=== PATIENT | male | born 1980 | race Caucasian/White ===

== ENCOUNTER 2020-09-09 06:14 | Outpatient (REF) | payer BC, SELFPAY ==
[2020-09-09 12:09] LABS: Alanine Aminotransferase 49 U/L (0-40); Albumin Level 4.1 g/dL (3.5-5.0); Alkaline Phosphatase 45 U/L (39-117); Anion Gap 14 (12-20); Aspartate Amino Transferase 38 U/L (5-37); Bilirubin Total 0.6 mg/dL (0.0-1.0); Blood Urea Nitrogen 18 mg/dL (9-16); Carbon Dioxide 23 mmol/L (22-29); Chloride 113 mmol/L (96-108); Cholesterol 189 mg/dL; Estimated Glomerular Filt Rate > 60; Glucose Fasting 129 mg/dL (60-99); HDL Cholesterol 31 mg/dL; LDL Cholesterol Calculated 120 mg/dl; Potassium 4.4 mmol/L (3.3-5.1); Sodium 146 mmol/L (135-145); Total Protein 7.1 g/dL (6.5-8.0); Triglycerides 190 mg/dL
[2020-09-09 12:19] LABS: TSH reflex Free T4 1.81 uIU/mL (0.32-4.0)
[2020-09-09 12:22] LABS: Microalbum/Creatinine Ratio Ur 7.8 ug/mg cr
== END 2020-09-09 06:15 | disposition home or self-care (01) ==
LOC: HO.HMGCLDS 06:14
PROVIDERS: Visit Provider Nurse Practitioner Family
DX: E11.9 Type 2 diabetes mellitus without complications (principal)
CPT/HCPCS: 36415; 80053; 80061; 82043; 84443

== ENCOUNTER 2022-10-21 06:45 | Outpatient (REF) | payer BC, SELFPAY ==
--- NOTE | ~2022-10-21 | XR_ITS ---
EXAMINATION: XR SHOULDER, RIGHT CLINICAL INFORMATION: Pain COMPARISON: Previous x-ray January 2019 TECHNIQUE: AP external rotation, Grashey, scapular Y, and axillary views of the right shoulder. FINDINGS: Bone alignment is normal. No acute fracture or dislocation. Question old Hill-Sachs deformity of the greater tuberosity similar to previous exam. Mild arthritis at the glenohumeral and acromioclavicular joints with small osteophytes. Normal soft tissues. XR/XR shoulder RT min 2V IMPRESSION: Mild arthritis at the glenohumeral and acromioclavicular joints. Question old Hill-Sachs deformity similar to previous exam.
[2022-10-21 10:37] LABS: MANUAL DIFF FLAG NO
[2022-10-21 10:41] LABS: Basophils Percent Auto 0.6 % (0-2); Eosinophils Absolute Auto 0.1 X10*3/uL (0.0-0.4); Eosinophils Percent Auto 1.1 % (0-4); Hematocrit 44.6 % (42.0-52.0); Hemoglobin 15.2 g/dl (14.0-18.0); Imm Gran Abs Auto 0.01 X10*3/uL (0.00-0.03); Imm Gran Pct Auto 0.2 % (0.0-0.4); Lymphocytes Absolute Auto 2.8 X10*3/uL (1.2-4.9); Lymphocytes Percent Auto 53.1 % (20-40); Mean Corpuscular HGB Conc 34.1 g/dl (31.0-36.0); Mean Corpuscular Hemoglobin 30.3 pg (27.0-33.0); Mean Platelet Volume 10.2 fL (9.4-12.4); Monocytes Absolute Auto 0.3 X10*3/uL (0.1-1.2); Neutrophils Absolute Auto 2.1 x10*3/uL (2.0-8.3); Platelet Count 141 X10*3/uL (160-400); Red Blood Count 5.01 X10*6/uL (4.60-5.80); White Blood Count 5.3 X10*3/uL (4.8-10.8)
[2022-10-21 10:53] LABS: Estimated Average Glucose 209 mg/dL; Hemoglobin A1c % 8.9 %
[2022-10-21 11:00] LABS: Alanine Aminotransferase 30 U/L (0-40); Alkaline Phosphatase 55 U/L (39-117); Anion Gap 12 (12-20); Aspartate Amino Transferase 24 U/L (5-37); Bilirubin Total 0.4 mg/dL (0.0-1.0); Blood Urea Nitrogen 17 mg/dL (9-16); Calcium 9.2 mg/dL (8.4-10.2); Carbon Dioxide 23 mmol/L (22-29); Chloride 109 mmol/L (96-108); Cholesterol 208 mg/dL; Estimated Glomerular Filt Rate > 60; Glucose Fasting 187 mg/dL (60-99); Glucose Random 186 mg/dL (60-115); HDL Cholesterol 33 mg/dL; LDL Cholesterol Calculated 105 mg/dl; Potassium 4.9 mmol/L (3.3-5.1); Sodium 139 mmol/L (135-145); Total Protein 7.1 g/dL (6.5-8.0); Triglycerides 352 mg/dL
[2022-10-21 11:14] LABS: Appearance Urine Clear; Color Urine Yellow; Glucose Urine UA >=1000 mg/dL (Negative); Leukocyte Esterase Urine Negative (Negative); Nitrite Urine Negative (Negative); PH 5.5 (5.0-9.0); Specific Gravity - Urine >= 1.030 (1.005-1.025); UMIC TRIGGER UACC YES; Urine Blood Negative (Negative); Urine Ketones Negative (Negative); Urine Protein Trace mg/dL (Neg-Trace)
[2022-10-21 11:17] LABS: TSH reflex Free T4 2.36 uIU/mL (0.32-4.0)
[2022-10-21 11:18] LABS: Bacteria Urine None Seen (None Seen); RBC Urine 0-2 /HPF (0-2); Squamous Epithelial Cell Urine 0-2 /HPF (0-2); WBC Urine 0-5 /HPF (0-5)
[2022-10-21 11:30] LABS: Creatinine Urine 136.01 mg/dL; Microalbum/Creatinine Ratio Ur 16.9 ug/mg cr
== END 2022-10-21 06:46 | disposition home or self-care (01) ==
LOC: HO.HMGCLDS 06:45
PROVIDERS: PCP Nurse Practitioner Family; Visit Provider Nurse Practitioner Family
DX: M25.511 Pain in right shoulder (principal); E11.9 Type 2 diabetes mellitus without complications
CPT/HCPCS: 36415; 73030; 80053; 80061; 81001; 82043; 83036; 84443; 85025

== ENCOUNTER → 2022-11-21 14:42 | Outpatient (BNVA) | payer BC, SELFPAY | PROVIDERS: Visit Provider Orthopaedic Surgery ==

== ENCOUNTER 2023-02-21 15:13 | Outpatient (AMB) | payer BC, SELFPAY ==
--- NOTE | 2023-02-21 15:19 | MHC.PC.OV ---
Vital Signs 02/21/23 15:23 Height 5 ft 11 in Weight 304 lb BMI 42.4 BP 150/100 H Blood Pressure Location Rt brachial Position Sitting Pulse 80 Pulse Source Pulse Oximeter Pulse Oximetry (%) 97 Oxygen Delivery Method Room Air Intake Visit Reasons: Annual PE Allergies bee pollen [BEE STINGS] Allergy (Unknown, Unverified 02/21/23 15:23) SWELLING bees Allergy (Unknown, Unverified 02/21/23 15:23) anaphylaxis Medication List - Last Reconciled 02/21/23 by KAMARI Castañeda- empagliflozin (Jardiance) 10 mg PO DAILY 30 days losartan 25 mg PO DAILY rosuvastatin 5 mg PO BEDTIME 30 days Tobacco use date assessed: 10/17/22 HPI Annual PE HPI Details Pt is here for a PE. Will order labs. Pt is a diabetic, on an ARB and a statin. A1C in office today is 8.5. Microalbumin is up to date. Denies polyuria, polydipsia, and neuropathy. Pt denies any signs and symptoms of hypoglycemia and does know how to correct it. Pt reports eating unhealthy recently. He plans to start working on his diet in the near future. Educated pt on the importance of tight glucose control. Pt has not been taking his medications after he ran out, will refill. Pt's blood pressure is elevated today, though he has not been taking his losartan. Will refer for eye exam. [facility] Medical History Hypertension Social History Housing: House Alcohol intake: current Alcohol intake frequency: a few times a month Patient Tobacco Use Status: Former Tobacco user Quit Date: 8 years ago e-Cigarette/Vaping Use: Never Used Second Hand Smoke Exposure: Yes service: No Current occupational status: employed Current occupation: [employer] Current occupational exposures/hazards: Yes Cognitive needs: No Hearing needs: No Vision needs: No Questionnaire Thrive Questionnaire Date Thrive assessed: 10/17/22 I am a: Patient What is your living situation today?: I have a steady place to live Within the past 12 months, did the food you bought not last and you didn't have the money to get more?: Never true Within the past 12 months, did you worry whether your food would run out before you got money to buy more?: Never true AUDIT C Alcohol Use Questionnaire (AUDIT-C) 1. How often do you have a drink containing alcohol?: Monthly or less 2. How many drinks containing alcohol do you have on a typical day when you are drinking?: 1 or 2 3. How often do you have six or more drinks on one occasion?: Less than monthly Total Score: 2 Score Reviewed/Action Taken: Yes AVTAR-7 AMB Questionnaire AVTAR-7 Date AVTAR - 7 assessed: 10/17/22 Feeling nervous, anxious, or on edge: 0 = Not at all Not being able to stop or control worryin = Not at all Worrying too much about different things: 0 = Not at all Trouble relaxin = Not at all Being so restless that it is hard to sit still: 0 = Not at all Becoming easily annoyed or irritable: 0 = Not at all Feeling afraid as if something awful might happen: 0 = Not at all Total AVTAR-7 score (0-4 normal; 5-9 mild; 10-14 moderate; 15-21 severe): 0 Source: Developed by Drs. Gautam Jane, Humera Reyes, Dhruv Quinones and colleagues, with an educational claudy from [employer]. AVTAR-7 Assessment Billing AVTAR-7 Assessment Tool: AVTAR-7 Assessment [id number] Review of Systems Const Denies chills and Denies fever(s) Eyes Denies blurry vision ENT Denies vertigo, Denies dizziness and Denies sore throat Card Denies chest pain at rest, Denies chest pain with activity, Denies diaphoresis, Denies dyspnea and Denies dyspnea on exertion Resp Denies cough, Denies dyspnea, Denies dyspnea on exertion and Denies wheezing GI Denies abdominal pain, Denies melena, Denies hematochezia, Denies constipation, Denies diarrhea and Denies loose stools Denies hematuria Musc Denies numbness and Denies tingling Skin/Breast Denies lesions Neuro Denies vertigo, Denies dizziness, Denies numbness and Denies tingling Psych Denies anxiety, Denies depression, Denies homicidal ideation, Denies suicidal ideation and Denies other (substance abuse) Aller/Immun Denies wheezing Physical exam (Primary Care) Vital Signs: Last Vital Signs Pulse 80 02/21/23 15:23 BP 150/100 H 02/21/23 15:23 Pulse Ox 97 02/21/23 15:23 Oxygen Delivery Method Room Air 02/21/23 15:23 BMI result Body Mass Index 42.4 Tobacco/Smoking Status: Tobacco use Status Tobacco use date assessed 10/17/22 02/21/23 15:21 Patient Tobacco Use Status Former Tobacco user 02/21/23 15:21 e-Cigarette/Vaping Use Never Used 02/21/23 15:21 Thrive Assessment: Date of Thrive Assessment Date Thrive assessed 10/17/22 02/21/23 15:21 Const General: cooperative Nutritional Appearance: obese morbidly obese Orientation/consciousness: patient oriented x3 HENMT Head: Yes normal to inspection, Yes normocephalic and Yes atraumatic Ears: TM's normal bilaterally Eyes General: appearance normal, both eyes and all related structures Alignment and Position: alignment normal and position normal Neck Neck: Yes normal visual inspection and Yes no lymphadenopathy Thyroid: Thyroid normal Resp Effort & Inspection: normal respiratory effort Auscultation: clear to auscultation bilaterally Cardio Rate: regular rate Rhythm: regular rhythm Heart sounds: S1 normal heart sound present, S2 normal heart sound present and no murmurs GI Palpation (GI): Soft to palpation and nontender Auscultation: normal bowel sounds Male General Exam: Yes normal external exam Penis: normal penis Scrotum: scrotum normal, testes descended bilaterally and no inguinal hernias Testes: no testicular mass Skin Rashes: no rashes Neuro General: patient oriented x3, moves all extremities, no focal motor deficits and deep tendon reflexes 2+ bilaterally Romberg Test: Negative Extrem Other: bilat feet: + sensation with use of monofilament Psych Appearance: grossly normal Mental Status: mental status grossly normal Speech and movement: Normal speech and movement present Affect: normal affect Attitude: cooperative Thought process: Normal thought process present Thought content: Normal thought content present Insight: Good insight present (Psych) Judgement: Good judgement present (Psych) Results AMB Hemoglobin A1c AMB Hemoglobin A1c 8.5 % Last Edit by PREET Herrera on 02/21/23 15:43 Results Reviewed Results Reviewed: Laboratory Last Values Hgb A1c (Clinic) 8.5 % (4.0-6.0) H 02/21/23 15:42 Assessment and Plan Assessment & Plan (1) Type 2 diabetes mellitus: Code(s): E11.9 - Type 2 diabetes mellitus without complications Qualifiers: Diabetes mellitus complication status: without complication Diabetes mellitus termite control servicer insulin use: without termite control servicer use Qualified Code(s): E11.9 - Type 2 diabetes mellitus without complications Plan: Labs ordered (2) Physical exam: Code(s): Z00.00 - Encounter for general adult medical examination without abnormal findings Plan The patient agreed to the use of a medical manager for this encounter. Scribed for KAMARI Love- by Rosa Paul medical manager, on 02/21/2023 at 15:35 EST. Orders: Orders TSH reflex Free T4 Today E11.9 - Type 2 diabetes mellitus without complications UA CC w/rflx Micro + Cult Today E11.9 - Type 2 diabetes mellitus without complications Lipid Panel Today E11.9 - Type 2 diabetes mellitus without complications AMB Hemoglobin A1c Today Z13.9 - Encounter for screening, unspecified Complete Blood Count Auto Diff Today E11.9 - Type 2 diabetes mellitus without complications Comprehensive [place]. Panel Fast Today E11.9 - Type 2 diabetes mellitus without complications Referrals Optometry Referral E11.9 - Type 2 diabetes mellitus without complications Medications: Refilled losartan 25 mg PO DAILY 30 tabs 3RF empagliflozin (Jardiance) 10 mg PO DAILY 30 days 30 tabs 3RF rosuvastatin 5 mg PO BEDTIME 30 days 30 tabs 2RF Coding Level of Care Code Est Pt Prev Care 40-64y(75153) Diagnoses Type 2 diabetes mellitus without complication, without long-term current use of insulin E11.9 Diabetes mellitus complication status: without complication Diabetes mellitus termite control servicer insulin use: without termite control servicer use Physical exam Z00.00 Additional Codes AVTAR-7 Assessment Billing - AVTAR-7 Assessment Tool: AVTAR-7 Assessment [id number] ([id number])
[2023-02-21 15:23] VITALS: BP 150/100; PULSE 80; O2SAT 97; BMI 42.4
== END 2023-02-21 16:15 | disposition home or self-care (01) ==
PROVIDERS: Visit Provider Nurse Practitioner Family
DX: Z00.00 Encounter for general adult medical examination without abnormal findings (principal); E11.9 Type 2 diabetes mellitus without complications
CPT/HCPCS: 83036; 99396

== ENCOUNTER 2023-05-05 06:41 | Outpatient (REF) | payer BC, SELFPAY ==
[2023-05-05 10:55] LABS: MANUAL DIFF FLAG NO
[2023-05-05 11:07] LABS: Basophils Percent Auto 0.6 % (0-2); Eosinophils Absolute Auto 0.1 X10*3/uL (0.0-0.4); Eosinophils Percent Auto 1.2 % (0-4); Hematocrit 46.4 % (42.0-52.0); Hemoglobin 15.6 g/dl (14.0-18.0); Imm Gran Abs Auto 0.01 X10*3/uL (0.00-0.03); Imm Gran Pct Auto 0.2 % (0.0-0.4); Lymphocytes Absolute Auto 2.5 X10*3/uL (1.2-4.9); Lymphocytes Percent Auto 49.6 % (20-40); Mean Corpuscular HGB Conc 33.6 g/dl (31.0-36.0); Mean Corpuscular Hemoglobin 30.5 pg (27.0-33.0); Mean Corpuscular Volume 90.8 fL (80.0-98.0); Mean Platelet Volume 10.2 fL (9.4-12.4); Monocytes Absolute Auto 0.3 X10*3/uL (0.1-1.2); Neutrophils Absolute Auto 2.1 x10*3/uL (2.0-8.3); Neutrophils Percent Auto 42.4 % (45-73); Platelet Count 139 X10*3/uL (160-400); Red Blood Count 5.11 X10*6/uL (4.60-5.80); Red Cell Distribution Width 12.5 % (11.0-16.0)
[2023-05-05 11:19] LABS: Appearance Urine Clear; Color Urine Yellow; Glucose Urine UA >=1000 mg/dL (Negative); Leukocyte Esterase Urine Negative (Negative); Nitrite Urine Negative (Negative); PH 5.5 (5.0-9.0); Specific Gravity - Urine >= 1.030 (1.005-1.025); UMIC TRIGGER UACC YES; Urine Blood Negative (Negative); Urine Ketones 15 mg/dL (Negative); Urine Protein Negative (Neg-Trace)
[2023-05-05 11:24] LABS: Bacteria Urine None Seen (None Seen); Hyaline Casts Urine 0-2 /LPF (0-2); RBC Urine 0-2 /HPF (0-2); Squamous Epithelial Cell Urine 0-2 /HPF (0-2); WBC Urine 0-5 /HPF (0-5)
[2023-05-05 11:31] LABS: Alanine Aminotransferase 22 U/L (0-40); Albumin Level 4.2 g/dL (3.5-5.0); Alkaline Phosphatase 52 U/L (39-117); Anion Gap 15 (12-20); Aspartate Amino Transferase 26 U/L (5-37); Bilirubin Total 0.4 mg/dL (0.0-1.0); Blood Urea Nitrogen 26 mg/dL (9-16); Calcium 9.5 mg/dL (8.4-10.2); Carbon Dioxide 20 mmol/L (22-29); Chloride 111 mmol/L (96-108); Cholesterol 268 mg/dL (<200); Estimated Glomerular Filt Rate > 60; Glucose Fasting 113 mg/dL (60-99); HDL Cholesterol 29 mg/dL (>40); Potassium 5.1 mmol/L (3.3-5.1); Sodium 141 mmol/L (135-145); Total Protein 7.9 g/dL (6.5-8.0); Triglycerides 510 mg/dL (<150)
[2023-05-05 11:38] LABS: TSH reflex Free T4 1.81 uIU/mL (0.32-4.0)
== END 2023-05-05 06:42 | disposition home or self-care (01) ==
LOC: HO.HMGCLDS 06:41
PROVIDERS: PCP Nurse Practitioner Family; Visit Provider Nurse Practitioner Family
DX: E11.9 Type 2 diabetes mellitus without complications (principal)
CPT/HCPCS: 36415; 80053; 80061; 81001; 84443; 85025

== ENCOUNTER 2023-05-24 15:29 | Outpatient (AMB) | payer BC, SELFPAY ==
--- NOTE | 2023-05-24 15:41 | MHC.PC.OV ---
Vital Signs 05/24/23 15:44 Height 5 ft 11 in Weight 296 lb BMI 41.3 BP 130/90 H Blood Pressure Location Rt brachial Position Sitting Pulse 72 Pulse Source Pulse Oximeter Pulse Oximetry (%) 98 Oxygen Delivery Method Room Air Intake Visit Reasons: 4 month follow up Intake Note: Patient here Allergies bee pollen [BEE STINGS] Allergy (Unknown, Unverified 05/24/23 16:25) SWELLING bees Allergy (Unknown, Unverified 05/24/23 16:25) anaphylaxis Medication List - Last Reconciled [facility]/24[facility]23 [facility] atorvastatin 20 mg PO BEDTIME empagliflozin (Jardiance) 10 mg PO DAILY fenofibrate 54 mg PO DAILY Tobacco use date assessed: 10/17/22 HPI 4 month follow up HPI Details follow up for DM. 6.5 a1C today. His numbers at home have been stable. microalbumin is up to date. Pt refuses to take a harjeet/arb now. pt has not started the statin yet, HIGHLY ENCOURAGED HE START THIS, especially with his high choles values.Pt is very reluctant on taking meds. Pt will call for his own eye exam. Pt has been working on his diet. #2 right heel pain, worse in AM, ? PF. Will get a xr for possible bone spur. Encourgaed pt to look up stretches for PF. refused vaccinations PFSH Medical History (Updated 05/24/23 @ 16:54 by KAMARI CastañedaVIVI) No vaccination-pt refuse Hypertension Social History Housing: House Alcohol intake: current Alcohol intake frequency: a few times a month Patient Tobacco Use Status: Former Tobacco user Quit Date: 8 years ago e-Cigarette/Vaping Use: Never Used Second Hand Smoke Exposure: Yes service: No Current occupational status: employed Current occupation: [employer] Current occupational exposures/hazards: Yes Cognitive needs: No Hearing needs: No Vision needs: No Questionnaire Thrive Questionnaire Date Thrive assessed: 10/17/22 AVTAR-7 AMB Questionnaire AVTAR-7 Date AVTAR - 7 assessed: 10/17/22 Source: Developed by Drs. Gautam Jane, Humera Reyes, Dhruv Quinones and colleagues, with an educational claudy from [employer]. Physical exam (Primary Care) Vital Signs: Last Vital Signs Pulse 72 05/24/23 15:44 BP 130/90 H 05/24/23 15:44 Pulse Ox 98 05/24/23 15:44 Oxygen Delivery Method Room Air 05/24/23 15:44 BMI result Body Mass Index 41.3 Tobacco/Smoking Status: Tobacco use Status Tobacco use date assessed 10/17/22 05/24/23 15:41 Patient Tobacco Use Status Former Tobacco user 05/24/23 15:41 e-Cigarette/Vaping Use Never Used 05/24/23 15:41 Thrive Assessment: Date of Thrive Assessment Date Thrive assessed 10/17/22 05/24/23 15:41 Const Nutritional Appearance: obese Resp Auscultation: clear to auscultation bilaterally Cardio Rate: regular rate Rhythm: regular rhythm Heart sounds: S1 normal heart sound present, S2 normal heart sound present and no murmurs Extrem Other: + sensation to bilat feet with monofilament. onychomycosis noted to first toe nails and 5th toenails. with dorsiflexion of toes and palpation of heel, no pain exacerbation noted General: Yes normal to inspection Psych Appearance: grossly normal Mental Status: mental status grossly normal Speech and movement: Normal speech and movement present Affect: normal affect Attitude: cooperative Thought process: Normal thought process present Thought content: Normal thought content present Insight: Good insight present (Psych) Judgement: Good judgement present (Psych) Results AMB Hemoglobin A1c AMB Hemoglobin A1c 6.5 % Last Edit by PREET Herrera on 05/24/23 17:11 Results Reviewed Results Reviewed: Laboratory Last Values Hgb A1c (Clinic) 6.5 % (4.0-6.0) H 05/24/23 17:10 Assessment and Plan Assessment & Plan (1) Dyslipidemia: Code(s): E78.5 - Hyperlipidemia, unspecified Plan: starting statin and fenofribrate (2) Type 2 diabetes mellitus: Code(s): E11.9 - Type 2 diabetes mellitus without complications Qualifiers: Diabetes mellitus complication status: without complication Diabetes mellitus jail insulin use: without manager of business use Qualified Code(s): E11.9 - Type 2 diabetes mellitus without complications Plan: continue same regime Orders: Orders XR foot RT 2V Today M79.673 - Pain in unspecified foot AMB Hemoglobin A1c Today Z13.9 - Encounter for screening, unspecified Medications: Refilled atorvastatin stop rosuvastatin and take this med instead please 20 mg PO BEDTIME 90 tabs 2RF fenofibrate 54 mg PO DAILY 90 tabs 3RF Coding Level of Care Code Est Pt Level 3 (37881) Diagnoses Dyslipidemia E78.5 Type 2 diabetes mellitus without complication, without long-term current use of insulin E11.9 Diabetes mellitus complication status: without complication Diabetes mellitus manager of business insulin use: without manager of business use
[2023-05-24 15:44] VITALS: BP 130/90; PULSE 72; O2SAT 98; BMI 41.3
== END 2023-05-24 17:10 | disposition home or self-care (01) ==
PROVIDERS: PCP Nurse Practitioner Family; Visit Provider Nurse Practitioner Family
DX: E78.5 Hyperlipidemia, unspecified (principal); E11.9 Type 2 diabetes mellitus without complications; Z13.9 Encounter for screening, unspecified
CPT/HCPCS: 83036; 99213

== ENCOUNTER → 2023-06-12 13:39 | Outpatient (BNV) | payer BC, SELFPAY | PROVIDERS: PCP Nurse Practitioner Family; Visit Provider Internal Medicine | DX: D69.6 Thrombocytopenia, unspecified (principal) | CPT/HCPCS: 99204; 99213 ==

== ENCOUNTER 2023-06-19 08:08 | Outpatient (REF) | payer BC, SELFPAY ==
--- NOTE | ~2023-06-19 | US_ITS ---
EXAMINATION: US ABDOMEN COMPLETE CLINICAL INFORMATION: Thrombocytopenia; question hepatosplenomegaly. COMPARISON: None available. TECHNIQUE: Real-time imaging of the abdominal viscera. FINDINGS: PANCREAS: Normal. ABDOMINAL AORTA: The proximal, mid, and distal segments are normal in caliber. INFERIOR VENA CAVA: Visualized portions are normal. LIVER: There is hepatomegaly, with a longitudinal span of 18.0 cm. The liver contour is normal. Parenchymal echogenicity is generally increased. No focal hepatic lesion. There is no intrahepatic biliary duct dilatation seen. GALLBLADDER: Normal. The gallbladder is physiologically distended without evidence of stones, sludge, polyps, wall thickening or pericholecystic fluid. COMMON BILE DUCT: Normal in caliber measuring 0.3 cm in diameter. RIGHT KIDNEY: Normal. No hydronephrosis. No renal calculi or focal parenchymal lesions. The kidney measures 12.2 cm in maximum dimension. LEFT KIDNEY: Normal. No hydronephrosis. No renal calculi or focal parenchymal lesions. The kidney measures 13.5 cm in maximum dimension. SPLEEN: Normal. The spleen measures 12.3 cm in maximum dimension. FREE FLUID: None. US/US abdomen complete IMPRESSION: 1. There is mild hepatomegaly. 2. There is generalized increase in hepatic echotexture, consistent with fatty infiltration or hepatocellular disease. Please correlate clinically. No focal hepatic mass or intrahepatic biliary dilatation is seen. 3. The examination is otherwise unremarkable. No splenomegaly is seen.
== END 2023-06-19 08:09 | disposition home or self-care (01) ==
LOC: HO.HMGCX 08:08
PROVIDERS: PCP Nurse Practitioner Family; Visit Provider Internal Medicine
DX: D69.6 Thrombocytopenia, unspecified (principal)
CPT/HCPCS: 76700

== ENCOUNTER 2023-07-30 15:48 | Outpatient (AMB) | payer BC, SELFPAY ==
--- NOTE | 2023-07-30 15:13 | MHC.PC.OV ---
Intake Visit Reasons: 3 Month F/U Labs/[phone] Allergies bee pollen [BEE STINGS] Allergy (Unknown, Verified 07/30/23 15:36) SWELLING bees Allergy (Unknown, Verified 07/30/23 15:36) anaphylaxis Medication List - Last Reconciled 07/30/23 by [facility] atorvastatin 20 mg PO BEDTIME empagliflozin (Jardiance) 10 mg PO DAILY fenofibrate 54 mg PO DAILY Tobacco use date assessed: 10/17/22 HPI 3 Month F/U Labs/[phone] HPI Details Pt is a diabetic, on a statin. Last A1C was 6.5, microalbumin is up to date. Denies polyuria, polydipsia, and neuropathy. Pt denies any signs and symptoms of hypoglycemia and does know how to correct it. Pt knows he needs to work on his blood sugar, especially diet. Eye exam is up to date. Dyslipidemia: On atorvastatin 20mg and fenofibrate 54mg. Will order labs. Due for colon screen, will refer to GI. [facility] Medical History No vaccination-pt refuse Hypertension Social History (Reviewed 07/30/23 @ 15:16 by KAMARI Castañ[facility]EN[facility]) Housing: House Alcohol intake: current Alcohol intake frequency: a few times a month Patient Tobacco Use Status: Former Tobacco user Quit Date: 8 years ago e-Cigarette/Vaping Use: Never Used Second Hand Smoke Exposure: Yes service: No Current occupational status: employed Current occupation: [employer] Current occupational exposures/hazards: Yes Cognitive needs: No Hearing needs: No Vision needs: No Questionnaire Thrive Questionnaire Date Thrive assessed: 10/17/22 AVTAR-7 AMB Questionnaire AVTAR-7 Date AVTAR - 7 assessed: 10/17/22 Source: Developed by Drs. Gautam Jane, Humera Reyes, Dhruv Quinones and colleagues, with an educational claudy from [employer]. Review of Systems Const Reports as per HPI Physical exam (Primary Care) Tobacco/Smoking Status: Tobacco use Status Tobacco use date assessed 10/17/22 05/24/23 15:41 Patient Tobacco Use Status Former Tobacco user 05/24/23 15:41 e-Cigarette/Vaping Use Never Used 05/24/23 15:41 Thrive Assessment: Date of Thrive Assessment Date Thrive assessed 10/17/22 05/24/23 15:41 Const General: cooperative Orientation/consciousness: patient oriented x3 Neuro General: patient oriented x3 Psych Appearance: grossly normal Mental Status: mental status grossly normal Speech and movement: Clear speech present Affect: normal affect Attitude: cooperative Thought process: Normal thought process present Thought content: Normal thought content present Insight: Good insight present (Psych) Judgement: Good judgement present (Psych) Telehealth Telehealth Location of provider rendering services: practice address Location of patient: address on file Patient Identification confirmed using: Name, : Yes Telehealth method: video Patient verbally consented to treatment: Yes Patient verbally consented to billing insurance company: Yes Patient informed of any privacy concerns related to visit: Yes Minutes spent on Phone/Video with Pt.: 10 Assessment and Plan Assessment & Plan (1) Dyslipidemia: Code(s): E78.5 - Hyperlipidemia, unspecified (2) Type 2 diabetes mellitus: Code(s): E11.9 - Type 2 diabetes mellitus without complications Qualifiers: Diabetes mellitus complication status: without complication Diabetes mellitus [facility] insulin use: without buttermaker helper use Qualified Code(s): E11.9 - Type 2 diabetes mellitus without complications (3) Screening for colon cancer: Code(s): Z12.11 - Encounter for screening for malignant neoplasm of colon Plan The patient agreed to the use of a ophthalmic medical technologist for this encounter. Scribed for ERNESTO Love by Rosa Paul ophthalmic medical technologist, on 07/30/2023 at 15:15 EST. Orders: Orders Comprehensive [place]. Panel Fast Today E11.9 - Type 2 diabetes mellitus without complications, E78.5 - Hyperlipidemia, unspecified Lipid Panel Today E11.9 - Type 2 diabetes mellitus without complications, E78.5 - Hyperlipidemia, unspecified Complete Blood Count Auto Diff Today E11.9 - Type 2 diabetes mellitus without complications, E78.5 - Hyperlipidemia, unspecified Hemoglobin A1c Today E11.9 - Type 2 diabetes mellitus without complications Referrals Gastroenterology Referral Z12.11 - Encounter for screening for malignant neoplasm of colon Coding Level of Care Code Tele Est Pt Level 3 (08342) Diagnoses Dyslipidemia E78.5 Type 2 diabetes mellitus without complication, without long-term current use of insulin E11.9 Diabetes mellitus complication status: without complication Diabetes mellitus buttermaker helper insulin use: without [facility] use Screening for colon cancer Z12.11
== END 2023-07-30 15:54 | disposition home or self-care (01) ==
LOC: HO.HMGC 15:48
PROVIDERS: PCP Nurse Practitioner Family; Visit Provider Nurse Practitioner Family
DX: E78.5 Hyperlipidemia, unspecified (principal); E11.9 Type 2 diabetes mellitus without complications; Z12.11 Encounter for screening for malignant neoplasm of colon
CPT/HCPCS: 99213

== ENCOUNTER 2024-02-07 19:33 | Emergency (ER) | payer BC, SELFPAY ==
[2024-02-07 19:41] VITALS: BP 180/109; PULSE 99; RESP 18; TEMP 36.7; O2SAT 94; BMI 44.4
--- NOTE | 2024-02-07 19:45 | ED.GENADULT ---
HPI - General Adult General Chief complaint: Allergic Reaction Stated complaint: 2 bee stings/allergic Time Seen by Provider: 02/07/24 20:18 Source: patient Mode of arrival: ambulatory Limitations: no limitations History of Present Illness ED Provider: Jai Anaya PA-C HPI narrative: 43-year-old male with a history of anaphylaxis to bee stings, history of dyslipidemia, thrombocytopenia, DM 2 who presents to the ER for evaluation after he was stung by 2 bees prior to arrival. He states he got stung about 1 hour ago. He does not have an EpiPen at home. He reports his anaphylactic reaction was as a child. He states he was stung by 1 bee a few months ago, and did well with oral Benadryl. He states the ear very for several days but he did not develop an anaphylactic reaction. Eyes any wheezing, shortness of breath, difficulty swallowing or speaking. No facial swelling. No hives on the rest of his body. The to places where he was stung are red, swollen, warm to touch. He did not take any medications prior to coming in MD complaint: Bee stings Onset (ago): hour(s) (1) Location: right and lower extremity Radiation: non-radiation Severity: moderate Quality: aching Pain Consistency: other (improving) Relieving factors: medication Related Data Previous Rx's ?Medication ?Instructions ?Recorded empagliflozin 10 mg tablet 10 mg PO DAILY #90 tabs 05/08/23 (Jardiance) atorvastatin 20 mg tablet 20 mg PO BEDTIME #90 tabs 05/24/23 fenofibrate 54 mg tablet 54 mg PO DAILY #90 tabs 05/24/23 Allergies Allergy/AdvReac Type Severity Reaction Status Date / Time bee pollen [BEE STINGS] Allergy Unknown SWELLING Verified 02/07/24 19:44 bees Allergy Unknown anaphylaxis Verified 02/07/24 19:44 Review of Systems Review of Systems: Yes all other systems are reviewed and are negative PMFSH Past Medical History Medical History No vaccination-pt refuse Hypertension Social History Social History Housing: House Alcohol intake: current Alcohol intake frequency: a few times a month Patient Tobacco Use Status: Former Tobacco user Smoked in Last 30 Days: No e-Cigarette/Vaping Use: Never Used Second Hand Smoke Exposure: Yes Use of substances other than those prescribed or required for medical reasons: No Advance Directives: No Advance Directives Information Provided: No Do you have a plan to hurt others: No Plan service: No Current occupational status: employed Current occupation: [employer] Current occupational exposures/hazards: Yes Cognitive needs: No Hearing needs: No Vision needs: No Physical Exam ED Vital Signs: Vital Signs - 24 hr 02/07/24 19:41 02/07/24 20:25 02/07/24 21:22 Temperature 98.1 F 98.3 F 98.3 F Pulse Rate 99 74 74 Respiratory Rate 18 20 20 Blood Pressure 180/109 H 139/90 H 139/90 H Pulse Oximetry 94 97 97 Oxygen Delivery Method Room Air Room Air Room Air BMI result Body Mass Index 44.4 Appearance: Alert. Oriented X3. No acute distress. Head: normocephalic, atraumatic. Eyes: Pupils equal, round and reactive to light. ENT: Pharynx normal. No tonsillar swelling or exudate. No swelling of the lips or tongue. Normal voice, handling secretions normally. Neck: Normal inspection. Neck supple. CVS: Normal heart rate and rhythm. Pulses normal. Respiratory: No respiratory distress. Breath sounds normal. Abdomen: Soft and nontender. +BS x4 Skin: Skin warm and dry. Normal skin color. Normal skin turgor. Right lower leg with a area of erythema approximately 4 cm round, mildly tender, mildly warm, mildly indurated. Right ankle with a smaller area of erythema, nontender. Extremities: No lower extremity edema. No joint swelling. Neuro/psych: Oriented X 3. Grossly normal, nonfocal Course Course Course Narrative: RME: Done by NATASHA Olivarez. 43-year-old male presents to ED for allergic reaction for bee sting. Patient was stung by 2 bees 5 minutes ago and now having rash. Patient states history of anaphylaxis reaction to bee sting. Presently no lip swelling, tongue swelling, or shortness of breath. Negative for uvular swelling. Lungs are clear. Patient is brought to room 1 for IV allergy meds. Reevaluation(s) Reevaluation #1: Improved after meds. Patient would like to go home. Reactions are very localized and comfortable discharge home Time: 21:04 Medications Administered Discontinued Medications Generic Name Dose Route Start Last Admin Trade Name Marion PRN Reason Stop Dose Admin Diphenhydramine HCl 50 mg 02/07/24 19:44 02/07/24 20:03 Diphenhydramine Hcl 50 Mg/Ml Vial IVPUSH 02/07/24 19:45 50 mg ONCE ONE Administration Famotidine 20 mg 02/07/24 19:44 02/07/24 20:03 Famotidine/Pf 20 Mg/2 Ml Vial IVPUSH 02/07/24 19:45 20 mg ONCE ONE Administration Methylprednisolone Sodium Succinate 125 mg 02/07/24 19:44 02/07/24 20:03 Methylprednisolone Sod Succ 125 Mg/2 Ml Vial IVPUSH 02/07/24 19:45 125 mg ONCE ONE Administration Medical Decision Making Medical Decision Making MDM Narrative: 43-year-old male with a history of diabetes, thrombocytopenia, dyslipidemia presenting to the ER for evaluation after he was stung on the right leg by 2 bees about an hour ago. He had redness and swelling to the right calf and right ankle immediately after the stings. He does not have an EpiPen. He reports his anaphylactic reaction was as a child. On arrival to the ER patient was brought to a room, IV was established and he was given IV Solu-Medrol, IV Benadryl and IV Pepcid. The erythema and swelling of the bee stings started to subside. He had no wheezing, facial swelling, lip swelling, tongue swelling. No difficulty swallowing or speaking. No evidence of anaphylaxis at this time. Patient was re-evaluated at the bedside multiple times and had continued improvement of his symptoms. No need for epinephrine at this time. Comfortable discharge home. Advised to continue Benadryl as needed for allergic reaction symptoms along with topical hydrocortisone for topical, localized affect. Stable for discharge home. Differential Diagnosis Differential Diagnoses: The differential diagnosis associated with the presentation includes Localized inflammatory reaction, allergic reaction, anaphylaxis, urticaria Admission/Observation Consideration of admission/observation: Escalation of care including admission/observation considered Independent Historian Clinical information obtained from an independent historian. History obtained from or confirmed by: Spouse External Record Review External record reviewed: Outpatient record and Prior outpatient labs Prescription Management I considered prescription management with: Other (Prednisone) Chronic Conditions Patient?s care impacted by: Diabetes Critical Care Time Critical Care Time Total Critical Care Time: 35 Attestation: I have personally provided critical care time exclusive of time spent on separately billable procedures. Time includes multiple bedside re-evaluations of his symptoms, re-evaluation after IV Benadryl, steroids and monitoring for potential decompensation. Intervention performed as documented. Discharge Plan Discharge Clinical Impression: Allergic reaction Patient Disposition: Home, Self-Care Instructions: General Allergic Reaction (ED) Additional Instructions: Use topical or oral Benadryl as needed for itching. Use [id number] hydrocortisone cream as needed for swelling and itching If you develop new or worsening symptoms call 911 or come back to the ER for further evaluation. Prescriptions: No Action Jardiance 10 mg tablet 10 mg PO DAILY Qty: 90 1RF atorvastatin 20 mg tablet 20 mg PO BEDTIME Qty: 90 2RF Rx Instructions: stop rosuvastatin and take this med instead please fenofibrate 54 mg tablet 54 mg PO DAILY Qty: 90 3RF Interventions: ED Discharge Assessment Last Done: 02/07/24 21:22 Discharge Date/Time: 02/07/24 21:23 Print Language: Yakut
[2024-02-07] MEDS: methylPREDNISolone Sod Succ 125 MG/2 ML VIAL IVPUSH (20:03)
[2024-02-07] MEDS: Famotidine/PF 20 MG/2 ML VIAL IVPUSH (20:03)
[2024-02-07] MEDS: diphenhydrAMINE HCL 50 MG/ML VIAL IVPUSH (20:03)
--- NOTE | 2024-02-07 20:12 | PC.NURSE ---
pt from home, a&ox4, respirations even and unlabored. pt reporting he was working on his garage when multiple bees came around him, pt reports 3 stings. right ankle, right upper thigh and right inner thigh. pt reports previous reaction to bee stings, at this time pt denies shortness of breath, chest pains and is able to speak in full clear sentences. pt noted to have red welts with no sitngers visible. 20G placed in left ac, pt medicated per jul.
[2024-02-07 20:25] VITALS: BP 139/90; PULSE 74; RESP 20; TEMP 36.8; O2SAT 97
[2024-02-07 21:22] VITALS: BP 139/90; PULSE 74; RESP 20; TEMP 36.8; O2SAT 97
== END 2024-02-07 21:23 | disposition home or self-care (01) ==
PROVIDERS: Emergency Provider Internal Medicine; PCP Nurse Practitioner Family
DX: T63.441A Toxic effect of venom of bees, accidental (unintentional), initial encounter (principal); M25.471 Effusion, right ankle; E11.9 Type 2 diabetes mellitus without complications; Y93.89 Activity, other specified; Y92.89 Other specified places as the place of occurrence of the external cause; Y99.8 Other external cause status; Z87.891 Personal history of nicotine dependence
CPT/HCPCS: 96374; 96375; 99284; J1200; J2919

== ENCOUNTER 2025-01-02 08:34 | Outpatient (AMB) | payer BC, SELFPAY ==
[2025-01-02 09:25] VITALS: BP 190/108; PULSE 70; TEMP 36.7; O2SAT 97; BMI 43.8
--- NOTE | 2025-01-02 09:25 | MHC.OFFWIV ---
Intake Vital Signs 01/02/25 09:25 Height 5 ft 11 in Weight 314 lb BMI 43.8 BP 190/108 H Blood Pressure Location Lt brachial Position Sitting Pulse 70 Pulse Source Pulse Oximeter Temp 98.0 F Temp Source Oral Pulse Oximetry (%) 97 Oxygen Delivery Method Room Air Intake Visit Reasons: EP Kidney infection? 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 Patient denies any injury or trauma preceding the onset of his symptoms, fevers, chills, headache, visual changes, polyuria, hematuria or abdominal pain. Patient has taken Motrin x1 without relief of his symptoms. Patient states the pain is aching in nature and does not radiate. [facility] Medical History (Updated 01/02/25 @ 10:07 by Danielle Shea PA-C) Hypertension No vaccination-pt refuse Social History Housing: House Alcohol intake: current Alcohol intake frequency: a few times a month Patient Tobacco Use Status: Former Tobacco user e-Cigarette/Vaping Use: Never Used Second Hand Smoke Exposure: Yes service: No Current occupational status: employed Current occupation: [employer] Current occupational exposures/hazards: Yes Cognitive needs: No Hearing needs: No Vision needs: No Review of Systems Const All systems reviewed & are unremarkable except as noted in HPI and below Reports no additional complaints, Denies body aches, Denies chills, Denies fatigue and Denies fever(s) Eyes Reports no additional complaints ENT Reports no additional complaints Card Reports no additional complaints Resp Reports no additional complaints GI Reports no additional complaints, Denies diarrhea, Denies loose stools, Denies nausea and Denies vomiting Reports flank pain (left) Musc Reports no additional complaints Skin/Breast Reports system reviewed and no additional complaints, except as documented Neuro Reports no additional complaints Psych Reports no additional complaints Endo Reports no additional complaints and Denies fatigue Bartolome/Lymph Reports no additional complaints Aller/Immun Reports no additional complaints Physical Exam Vital Signs: Last Vital Signs Temp 98.0 F 01/02/25 09:25 Pulse 70 01/02/25 09:25 BP 190/108 H 01/02/25 09:25 Pulse Ox 97 01/02/25 09:25 Oxygen Delivery Method Room Air 01/02/25 09:25 BMI result Body Mass Index 43.8 Repeat blood pressure 190/112, patient is afebrile. Const General: cooperative, comfortable, no acute distress, well developed, alert, awake, Physically active and acute distress; No ill appearing Nutritional Appearance: average body habitus Orientation/consciousness: patient oriented x3 Limitations: no limitations HEENT Head: Yes normal to inspection and Yes normocephalic GI Inspection: Yes normal to inspection Palpation (GI): Soft to palpation, nontender (no left flank pain, no CVAT bilaterally), no guarding and not rigid Auscultation: normal bowel sounds General: Yes Bimanual renal exam normal bilaterally, Yes bladder normal to palpation and Yes no CVA tenderness Back/Spine/Pelvis Back: no CVA tenderness Thoracic/Lumbar Spine: thoracic and lumbar spine normal to inspection, thoraco-lumbar ROM normal, paraspinal muscle tenderness on the left in the lower lumbar and No lumbar spinal tenderness Sacroiliac joints: on the left nontender Skin General skin exam: no rashes or lesions noted Neuro General: patient oriented x3 Psych Appearance: grossly normal Mental Status: mental status grossly normal Affect: normal affect Insight: Limited insight present (Psych) Judgement: Limited judgement present (Psych) Results AMB Urinalysis, Automated UA Leukoctes 0 Alicia/uL Last Edit by Nisha Milligan MA on 01/02/25 09:57 UA Nitrite Negative Last Edit by Nisha Milligan MA on 01/02/25 09:57 UA Urobilinogen 0.2 mg/dL Last Edit by Nisha Milligan MA on 01/02/25 09:57 UA Protein 0 mg/dL Last Edit by Nisha Milligan MA on 01/02/25 09:57 UA pH 6.0 Last Edit by Nisha Milligan MA on 01/02/25 09:57 UA Blood 0 Amari/uL Last Edit by Nisha Milligan MA on 01/02/25 09:57 UA Specific Marty 1.025 Last Edit by Nisha Milligan MA on 01/02/25 09:57 UA Ketone Negative Last Edit by Nisha Milligan MA on 01/02/25 09:57 UA Bilirubin 0 mg/dL Last Edit by Nisha Milligan MA on 01/02/25 09:57 UA Glucose 500 mg/dL Last Edit by Nisha Milligan MA on 01/02/25 09:57 Results Reviewed Results Reviewed: Urinalysis is not consistent with an acute urinary tract infection or hematuria. Assessment & Plan Assessment & Plan (1) Lumbar strain: Comment: Patient's history coupled with his examination is more consistent with a lumbar strain; anti-inflammatories and muscle relaxants will be prescribed. Code(s): S39.012A - Strain of muscle, fascia and tendon of lower back, initial encounter Qualifiers: Encounter type: initial encounter Qualified Code(s): S39.012A - Strain of muscle, fascia and tendon of lower back, initial encounter Plan: Naprosyn 500 mg b.i.d., methocarbamol 750 mg q.8 hours. (2) Glucosuria: Comment: Patient is declining blood glucose testing at this time and does not currently have a primary care provider of record. Patient is encouraged to reestablish care with PCP. Code(s): R81 - Glycosuria Plan: Follow up with PCP. Plan Patient is declining any medication for his blood pressure. Denies having any headaches or visual changes. Patient is encouraged to follow up with his PCP for ongoing management. Orders: Orders AMB Urinalysis Automated Today Z13.9 - Encounter for screening, unspecified Medications: New naproxen (Naprosyn) 500 mg PO BID 20 tabs 0RF methocarbamol 750 mg PO Q8H 30 tabs 0RF Coding Level of Care Code Est Pt Level 4 (10428) Diagnoses Strain of lumbar region, initial encounter S39.012A Encounter type: initial encounter Glucosuria R81 Time Spent (min) 25
== END 2025-01-02 09:58 | disposition home or self-care (01) ==
PROVIDERS: PCP Nurse Practitioner Family; Visit Provider Physician Assistant
DX: S39.012A Strain of muscle, fascia and tendon of lower back, initial encounter (principal); R81 Glycosuria; Z13.9 Encounter for screening, unspecified

== ENCOUNTER → 2025-01-02 08:34 | Outpatient (BNVA) | payer BC, SELFPAY | PROVIDERS: PCP Nurse Practitioner Family; Visit Provider Physician Assistant | DX: I10 Essential (primary) hypertension (principal); E78.5 Hyperlipidemia, unspecified; E11.9 Type 2 diabetes mellitus without complications; R81 Glycosuria; S39.012A Strain of muscle, fascia and tendon of lower back, initial encounter; X58.XXXA Exposure to other specified factors, initial encounter; Y93.9 Activity, unspecified; Y92.9 Unspecified place or not applicable; Y99.9 Unspecified external cause status | CPT/HCPCS: 81003 ==

== ENCOUNTER → 2025-02-23 10:45 | Outpatient (BNVA) | payer SELFPAY | PROVIDERS: PCP Nurse Practitioner Family; Visit Provider Emergency Medicine | DX: Z02.79 Encounter for issue of other medical certificate (principal) ==